=== PATIENT | female | born 1970 | race Caucasian/White ===

== ENCOUNTER 2021-09-23 00:02 | Day surgery (SDC) | payer BC, SELFPAY ==
[2021-09-16 15:55] VITALS: BMI 33.5
--- NOTE | 2021-09-16 16:26 | PC.NURSE ---
Report to the Outpatient Waiting Room, entrance under the green pavilion located off [facility], at time 1130 on date 09/23/21. OR Time: 1330. - You and your visitor will be asked a series of questions to screen for COVID 19 for your protection. - Only one visitor is allowed at this time. - The patient visitor is requested to leave or wait in car when not with patient. - A mask is required within the hospital. Patients may have clear liquids (water, carbonated beverages, clear teas, apple juice) until 3 hours prior to surgery with a maximum of 20 ounces. - No food from midnight until time of surgery - Infants may have breast milk until 4 hours before surgery, formula 6 hours prior to surgery. - Children will be allowed to drink immediately following surgery. If applicable, please bring a bottle or sippy cup to assist with drinking. Juice, water, soda, and popsicles are readily available. For infants on formula, please bring formula the day of surgery. Pacifiers are allowed. Take the following medications with a SIP of water the morning of surgery: ativan, bupropion Medications to discontinue per physician Date to take last dose Please no make-up, nail mongolian, hairspray, perfume, deodorant, or body powder the day of surgery. No jewelry (including any body piercings) or valuables the day of surgery, leave them at home. Please take a shower or bath the night before, or the morning of, surgery with an antibacterial soap. Wear comfortable, loose fitting clothing. Children are encouraged to wear pajamas. - Jewelry must be removed prior to entering the operating room. Rings and piercings that are not removed may be cut off. - The hospital will not accept responsibility for valuables. - Please leave all valuables, including medications, at home the day of surgery. If you are going home after surgery, a licensed newspaper delivery driver must drive you home. - NO public transportation without another adult. - We recommend that an adult stay with you for 24 hours following discharge. - We also recommend that you do not drive, make important decision, drink alcoholic beverages, or take any drugs that were not prescribed by your health care provider for at least 24 hours after your discharge time. For Pediatric surgeries, we recommend two adults accompany the child home (only one inside the building at this time). Follow any additional instructions given to you from your surgeon. If you or anyone in your household have experienced Covid symptoms in the past week, please notify your surgeon or the nurse liaison at the phone number below for possible testing. Telephone instructions given to Lyn Cherryand asked if any additional questions and then verbalized understanding. Patient advised to call surgeon office or pre surgery nurse liaison [phone] if any additional questions.
[2021-09-23] VITALS (11 sets, daily range): BP systolic 116–157; BP diastolic 74–99; PULSE 69–90; RESP 12–20; TEMP 36.4–37.6; O2SAT 98–100
--- NOTE | 2021-09-23 10:30 | ECG_ITS ---
Measurements Intervals [place] Rate: 72 P: 25 OR: 167 QRS: 9 QRSD: 84 T: 24 QT: 369 QTc: 406 Interpretive Statements SINUS RHYTHM NORMAL ECG Electronically Signed On 09-23-2021 12:21:05 CDT by Urban Desir D.O.
--- NOTE | 2021-09-23 11:38 | W.PM.PROC2 ---
Procedure Note - Detailed Date of Procedure 09/23/21 Pre-op Diagnosis acquired breast deformity Post-op Diagnosis Same Procedure Performed 1. Bilateral breast implant exchange (left ruptured, right intact) 2. Bilateral breast fat grafting 3. Bilateral breast capsulectomy Surgeon Dami Treviño MD Anesthesia General Findings Fat grafting to breast: Right 110 cc Left 90cc Implants: Bilateral Valentin Bravoira SoftTouch 560cc Right REF# [id number] SN [id number] Left REF# [id number] SN [id number] Description of Procedure Preoperatively the risks, benefits, alternatives were discussed in extensive detail. I wanted her to be very realistic about the risks involved as well as expectations. Made sure answered all of her questions to her satisfaction. Consent obtained. Patient was taken to the operating room placed supine on the operating room table. Anesthesia provided by anesthesiology and prepped and draped in a standard sterile fashion. Surgical time-out was taken. A thorough abdominal examination was completed. No hernias were palpable. Abdominal stab incisions were made and infiltrated with a tumescent solution. Once adequate time for hemostasis suction lipectomy was completed using a 3 mm multi hole cannula to a gravity separation device. We then proceeded to breast. Once adequate time for separation of the adipose tissue I used the central component. Stab incisions were made infiltrated adipose tissue using a 3 mm cannula in multiple planes and passes to maximize contour. Volumes as above. 15 blade used to excise the left previous scar. On the right we used an elliptical incision to excise the Sim as planned. This was sent to pathology. Dissection continued until the implant capsules were identified. Bilateral capsulectomy completed (partial). Capsules were sent to pathology. Implants removed. Findings as above. At copiously irrigated with more than 3 L of saline containing solution on TUR tubing. I then verified strict hemostasis. I then copiously irrigated with antibiotic Betadine solution. Wash my gloves. Using no-touch technique and a Watson funnel the inner implant was introduced into the pocket. I closed using 2-0 Vicryl followed 3-0 Stratafix in subcuticular 4-0 Monocryl and tissue glue. She tolerated the procedure well. Estimated Blood Loss 25 Drains No Packing No Pathology Yes (Bilateral breast capsules, right nipple for symmetry) Complications No immediate complications Condition Stable Disposition PACU
--- NOTE | 2021-09-23 11:46 | P.PNAN_ITS ---
Anes - Initial Pre Proc Eval Procedure: Operation Date: 09/23/21 13:30 Proposed Procedures p Bilateral Breast Implant Exchange, - Dami Treviño MD s Bilateral Breast Fat Grafting, Removal Right Nipple - Dami Treviño MD Date/Time: 09/23/21 11:46 Surgeon: Dami Treviño MD Pre Op Diagnosis: acquired breast deformity Patient Data Age: 51 Gender: F Height: 1.6 m Weight: 86 kg Allergies Allergy/AdvReac Type Severity Reaction Status Date / Time No Known Allergies Allergy Unverified 09/23/21 11:51 Home Medications Medication Instructions Recorded Confirmed Type amlodipine 5 mg tablet 5 mg PO DAILY 07/23/21 09/16/21 History bupropion HCl 150 mg tablet,12 hr 300 mg PO DAILY 07/23/21 09/16/21 History sustained-release docusate sodium 100 mg capsule 100 mg PO DAILY #14 cap 09/16/21 Rx lorazepam 0.5 mg PO BID PRN 09/16/21 09/16/21 History ondansetron 4 mg disintegrating 4 mg PO Q8H #21 tablet 09/16/21 Rx tablet carisoprodol 350 mg tablet 350 mg PO TID PRN #21 tablet 09/17/21 09/17/21 Rx oxycodone-acetaminophen 5 mg-325 1 tablet PO Q6H PRN #30 tablet 09/17/21 09/17/21 Rx mg tablet Patient hx anesthesia problems: post op nausea/vomiting Family hx anesthesia problems: none Results Review: All pre-operative results and documents have been reviewed as part of the pre-operative evaluation. [facility]LY [facility] Past Medical History Medical History Hx of breast cancer Surgical History Surgical History Hx of bilateral mastectomy Hx of breast reconstruction Hx of section Hx of cholecystectomy Family History Family History Other Breast cancer Father CHF (congestive heart failure) Social History Social History Smoking status: Never smoker Alcohol intake: current Drinks per week: 5 Substance use: never Living arrangements: with family Spiritual care concerns: No Anes - Eval Final PreProcedure Day of Procedure 09/23/21 11:46 Patient weight: obese Heart: regular rate and rhythm Lungs: clear to auscultation and normal air movement Airway: Mallampati scale class II Neurological: alert and oriented Last oral intake: >/= 8 hours ASA classification: III Emergent: no Anesthetic plan: proceed Anesthesia type and monitoring: general ETT and standard monitoring Results Review: All pre-operative results and documents have been reviewed as part of the pre-operative evaluation. Informed Consent: The patient's anesthetic plan and its attendant risks and benefits were discussed with the patient/family/POA. Questions were solicited and answers provided to the satisfaction of the patient/family/POA.
[2021-09-23] MEDS: SCOPOLAMINE 1.5 MG PATCH TRANSDERM (12:10)
[2021-09-23] MEDS: LACTATED RINGERS 1,000 ML 30 ML IV CONT ×2 (12:10→14:37)
--- NOTE | 2021-09-23 12:13 | WPDHPUPDATE1 ---
History and Physical Update Update Date/Time: 09/23/21 12:13 History and Physical has been reviewed, including an updated exam of the patient. There are NO changes in the patient's condition. Risks, benefits, and alternatives have been discussed and questions answered. Patient agrees to proceed with procedure.
[2021-09-23] MEDS: ceFAZolin 2 GM/D5W 50 ML 2 GM/50 ML BAG IVPB (12:20)
[2021-09-23] MEDS: BUPIVACAINE HCL 0.25% PF 30 ML VIAL INFILTRATE (12:43)
[2021-09-23] MEDS: LIDO 1%/EPINEPHRINE 1:100,000 50 ML VIAL 20 ML INFILTRATE (12:44)
[2021-09-23] MEDS: NACL 0.9% IRRIG POUR BOTTLE 900 ML, GENTAMICIN SULFATE INJ 160 MG, ceFAZolin 2 GM, POVI... IRRIGATION (12:57)
[2021-09-23 13:42] LABS: Urine Cotinine NEGATIVE
[2021-09-23] MEDS: fentaNYL CITRATE INJ (*CRX) 100 MCG/2 ML VIAL 25 MCG IV PUSH ×3 (14:56→15:04)
[2021-09-23] MEDS: oxyCODONE HCL (*CRX) 5 MG TAB IR PO (15:34)
== END 2021-09-23 17:05 | disposition home or self-care (01) ==
PROVIDERS: Visit Provider Surgery Plastic and Reconstructive Surgery
PROC: (CPT 19342; principal; 2021-09-23 13:30)
PROC: (CPT 15769; 2021-09-23 13:30)
DX: N64.89 Other specified disorders of breast (principal); T85.43XA Leakage of breast prosthesis and implant, initial encounter; L90.5 Scar conditions and fibrosis of skin; Z85.3 Personal history of malignant neoplasm of breast; Z90.13 Acquired absence of bilateral breasts and nipples; Y83.8 Other surgical procedures as the cause of abnormal reaction of the patient, or of later complication, without mention of misadventure at the time of the procedure; E66.9 Obesity, unspecified; Z68.34 Body mass index [BMI] 34.0-34.9, adult; Z79.899 Other long term (current) drug therapy
CPT/HCPCS: 19380; 80307; 88302; 88304; 88305; 93005; A9270; J0171; J0690; J1100; J1580; J2405; J2704; J3010; J7120